=== PATIENT | male | born 1990 | race Caucasian/White ===

== ENCOUNTER 2020-01-25 21:40 | Emergency (ER) | payer SELFPAY ==
[~2020-01-25] VITALS: Ht 165.1 cm; Wt 61.2 kg
[2020-01-25 21:40] VITALS: BP_SYST 138
[2020-01-25] MEDS ORDERED: FAMOTIDINE 20 MG TABLET PO ONE (21:45)
[2020-01-25] MEDS ORDERED: DIPHENHYDRAMINE HCL 12.5 MG/5 ML UDC PO ONE (21:45)
[2020-01-25] MEDS ORDERED: PREDNISONE 20 MG TABLET PO ONE (21:45)
[2020-01-25 23:30] VITALS: BP_SYST 126
== END 2020-01-25 23:30 | disposition home or self-care (01) ==
LOC: SED 21:40
DX: T78.3XXA Angioneurotic edema, initial encounter (principal); Z72.0 Tobacco use; X58.XXXA Exposure to other specified factors, initial encounter
CPT/HCPCS: 99284; J7512